=== PATIENT | male | born 1965 | race Caucasian/White ===

== ENCOUNTER 2024-06-13 13:39 | Day surgery (SDC) | payer BC, SELFPAY ==
[2024-06-13] VITALS (8 sets, daily range): BP systolic 137–165; BP diastolic 85–90; PULSE 69–107; RESP 16–18; TEMP 36.2–37.2; O2SAT 95–98; BMI 33.7
--- NOTE | 2024-06-13 13:58 | EDS_ITS ---
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 Patient states this happened Sunday and he went to [facility], was given IV medication and it helped. Patient states around noon today he was eating a pork chop when he felt that it was stuck. He states he tried drink water however would immediately throw it up. Denies any chest pain or shortness of breath. This has happened in the past however this was 15 years ago. He currently does not have a GI specialist. <Dr. Jean Pierre Hanks MD - Last Filed: 06/13/24 15:32> Narrative Narrative: Patient is a 59-year-old male with history of blood clots on [facility] who presents to the [facility] for foreign body stuck in his esophagus. Patient states this happened Sunday and he went to [facility], was given IV medication and it helped. Patient states around noon today he was eating a pork chop when he felt that it was stuck. He states he tried drink water however would immediately throw it up. Denies any chest pain or shortness of breath. This has happened in the past however this was 15 years ago. He currently does not have a GI specialist. I have personally performed a face to face assessment of the patient and have reviewed the BERNARDINO Note. I performed a substantive portion of the visit including all aspects of the following. My butt findings include: History is 59-year-old male and unfortunately for lung states it was stuck. It is similar Prasun on Sunday went to a local emergency department glucagon it resolved. He occasionally takes Nexium at home. Has not been taking it regularly. He does have a history of heartburn. Exam is [well-appearing 5-year-old male. Vital signs stable afebrile. Pulse ox 95% on room air. No distress. H EENT exam unremarkable. Posterior pharynx normal. Neck nontender. Lungs clear to auscultation. Heart regular rhythm no murmur rate about 70. Chest wall ribs nontender. Abdomen soft nontender. Moving all 4 extremities. Nontender no edema. He is awake and alert.] Medical Decision Making [patient with esophageal foreign body. He was given glucagon and Coke he threw up. But still unable to swallow. We spoke to GI Friend. He is seeing his patients in his office. Once he is done with that the patient be taken to endoscopy. Repeat exam patient is resting comfortably at 2:55 PM.] Other additions or changes: [None] Prior similar symptoms: Yes Recent Illness/Hospitalization: No PFSH <DHARMESH Borjas - Last Filed: 06/13/24 15:03> PENDING SALE TO [facility] Medical History no medical history Home Medications ?Medication ?Instructions ?Recorded ?Last Taken ?Type albuterol sulfate 90 mcg/actuation 2 puff inhalation Q4H PRN 06/13/24 Unknown History aerosol inhaler shortness of breath or wheezing apixaban 5 mg tablet (Eliquis) 5 mg PO BID 06/13/24 Unknown History hydrochlorothiazide 25 mg tablet 12.5 - 25 mg PO DAILY 06/13/24 06/13/24 History montelukast 10 mg tablet 10 mg PO QPM 06/13/24 06/12/24 History thyroid (pork) 15 mg tablet 15 mg PO DAILY 06/13/24 06/13/24 History (Bonnie Thyroid) Allergy/AdvReac Type Severity Reaction Status Date / Time No Known Allergies Allergy Verified 06/13/24 13:42 Family History no significant family his Surgical History no surgical history Social History Smoking Status: Never smoker ROS <DHARMESH Borjas - Last Filed: 06/13/24 15:03> ROS ED ROS Narrative Constitutional: Negative for fever, chills, weight loss, weakness Eyes: Negative for vision loss, vision change, double vision ENT: Negative for any sore throat, ear pain, congestion Cardiovascular: Negative for any chest pain, tightness, palpitations Respiratory: Negative for any cough, sputum production, hemoptysis, dyspnea, dyspnea on exertion, orthopnea Gastrointestinal: Negative for any abdominal pain, nausea, vomiting, diarrhea, constipation, blood in stool, blood in vomit. Positive for foreign body in esophagus : Negative for any urinary frequency, dysuria, retention, blood in urine Muscle skeletal: Negative for any neck pain, back pain Neurological: Negative for any headache, syncope, dizziness Skin: Negative for any rashes, itching, abrasions, lacerations Psychiatric: Negative for any depression, anxiety, stress, suicidal ideation, homicidal ideation Hematologic: Negative for any excessive bruising, easy bleeding EXAM <DHARMESH Borjas - Last Filed: 06/13/24 15:03> Physical Exam Narrative Exam Narrative: Vital signs reviewed. Patient appears to be in no distress however patient is constantly spitting up secondary to being unable to swallow. HEET: Head normocephalic atraumatic, TMs clear bilaterally. Posterior pharynx is clear, moist mucous membranes. Nares clear bilaterally. Neck: Supple with no lymphadenopathy or tenderness. No signs of meningismus. Cardiac: Regular rate and rhythm no murmurs gallops or rubs, equal peripheral pulses bilaterally. Respiratory: Lungs clear to auscultation bilaterally. No chest tenderness. Abdomen: Soft, nontender, nondistended. No abdominal bruit or pulsatile masses. No hepatosplenomegaly Extremities: No peripheral edema, no signs of gross trauma or deformity. Active full range of motion of all extremities. Neuro: Cranial nerves II through XII intact, no focal neurological deficits. Skin: Clean dry and intact with no rash, purpura, petechiae, vesicles or pustules. Backs/flank: No CVA tenderness, no midline spinal tenderness, no deformity. Psych: Normal mood and affect. No SI, HI or acute psychosis. Const Vital Signs: 06/13/24 13:40 06/13/24 13:56 Temperature 97.1 F L Temperature Source Temporal Pulse Rate 69 Respiratory Rate 18 Respiratory Effort Normal Non-Labored Respiratory Pattern Normal Blood Pressure 137/88 H Blood Pressure Mean 104 Pulse Ox 95 Oxygen Delivery Method Room Air <Dr. Jean Pierre Hanks MD - Last Filed: 06/13/24 15:32> Physical Exam Const Vital Signs: 06/13/24 13:40 06/13/24 13:56 Temperature 97.1 F L Temperature Source Temporal Pulse Rate 69 Respiratory Rate 18 Respiratory Effort Normal Non-Labored Respiratory Pattern Normal Blood Pressure 137/88 H Blood Pressure Mean 104 Pulse Ox 95 Oxygen Delivery Method Room Air MDM <DHARMESH Borjas - Last Filed: 06/13/24 15:03> [facility] Treatment and Re-Evaluation :: Differential diagnosis includes however is not limited to: Esophageal foreign body, esophageal stricture, sore throat, Patient appears generally well, vital signs are stable, patient is nontoxic- appearing. Patient presents to the [facility] for esophageal foreign body. Patient did have luck with the IV medication the first time, patient will have an IV established, IV glucagon, then 20 minutes, the patient will try a carbonated beverage while bouncing on the balls of his feet. I will reach out to Dr. Carr in case this is unsuccessful. The patient was unable to pass the foreign body on his own. We did reach out to Dr. Carr, he is in clinic right now however when he is done, he will take the patient to have the EGD to remove the foreign body. Patient remained stable. <Dr. Jean Pierre Hanks MD - Last Filed: 06/13/24 15:32> [facility] MDM Narrative Medical decision making narrative: I have personally performed a face to face assessment of the patient and have reviewed the BERNARDINO Note. I performed a substantive portion of the visit including all aspects of the following. My butt findings include: History is 59-year-old male esophageal foreign body he. Had a porch up today for lunch has not stuck. He is unable to swallow. Similar episode on Sunday where he went to another local emergency department was given glucagon it resolved. He has a history of reflux but only occasionally takes Nexium. Den ies other complaints. Exam is [well-appearing 5-year-old male. Vital signs stable afebrile. H EENT exam unremarkable. Neck nontender. Lungs clear. Heart regular rhythm. Abdomen soft nontender. No peritoneal signs. Moving all 4 extremities. Awake and alert. No focal motor deficits.] Medical Decision Making [patient with esophageal foreign body from food bolus. Given glucagon and Coke he threw those up. But still has a obstruction. Spoke to GI he will be taken for endoscopy.] Other additions or changes: [None] Discharge Plan Triage Chief Complaint: Foreign Body ED Midlevel Provider: Espinoza Vu ED Provider: Jean Pierre Hanks Dx/Rx/DC Orders Clinical Impression: Distal esophageal obstruction due to foreign body Prescriptions: No Action Eliquis 5 mg tablet 5 mg PO BID montelukast 10 mg tablet 10 mg PO QPM hydrochlorothiazide 25 mg tablet 12.5 - 25 mg PO DAILY albuterol sulfate 90 mcg/actuation HFA aerosol inhaler 2 puff INHALATION Q4H PRN (Reason: shortness of breath or wheezing) thyroid (pork) [[place]nie Thyroid] 15 mg tablet 15 mg PO DAILY Primary Care Provider: Care Physician,No Primary Referrals: Care Physician,No Primary [Primary Care Provider] - Print Language: Estonian Disposition Disposition: Home, Self Care
[2024-06-13] MEDS: Glucagon 1 MG/ML Syringe IV (14:04)
--- NOTE | 2024-06-13 16:20 | EGD_PTH ---
PATIENT: JEOVANY CHAND [place] [facility] [id number] AGE/SX: 59/M ROOM: RE06/13/[address]: Dr. Odilon Carr DO : 1965 BED: DIS: 06/13/2024 SPEC #: [id number] RECD: 06/16/24 10:36 STATUS: JORGE LUIS RENatty #: [id number] REMEDIOS: 06/13/24 16:[address]: Odilon Carr DEPT: SURGICAL PATHOLOGY RECD BY: Raine Prasad ENTERED: 06/16/24 12:25 SP TYPE: EGD BIOPSY OT DR: Dr. Jean Pierre Hanks MD No Primary Care Phys Tissues: Esophagus, NOS Procedures: Special Stain Group I Surgery Specimen Level IV AFB Stain (control) GMS Stain (control) HEADER OPERATION: EGD with foreign body extraction and biopsy PRE-OP DIAGNOSIS: Distal esophageal obstruction due to foreign body TISSUE SUBMITTED: Esophageal stricture biopsy MICROSCOPIC DIAGNOSIS Esophageal stricture, biopsy: Ulceration with associated acute and chronic inflammation and granulation. Changes consistent with reflux esophagitis. Negative for acid fast bacilli and fungal organisms. See comment. 06/17/2024 COMMENT Eosinophils numbers are greater than 20 in selected high power roach. AFB and GMS stains with matched controls were used in the evaluation of this case. MICROSCOPIC DESCRIPTION Slides are reviewed. GROSS DESCRIPTION Received in fixative is one container labeled with the patient's name and designated Esophageal stricture biopsy. The specimen consists of multiple irregular fragments of light hickman soft tissue that in aggregate measure 2.0 x 0.4 x 0.1 cm. The specimen is totally submitted in one cassette. 06/16/2024 TC:2 CPT:89305,11670m7
--- NOTE | 2024-06-13 16:27 | HP.PCM_ITS ---
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 Patient states this happened Sunday and he went to [facility], was given IV medication and it helped. Patient states around noon today he was eating a pork chop when he felt that it was stuck. He states he tried drink water however would immediately throw it up. Denies any chest pain or shortness of breath. This has happened in the p ast however this was 15 years ago. [facility] Medical History no medical history Home Medications ?Medication ?Instructions ?Recorded ?Last Taken ?Type albuterol sulfate 90 mcg/actuation 2 puff inhalation Q4H PRN 06/13/24 Unknown History aerosol inhaler shortness of breath or wheezing apixaban 5 mg tablet (Eliquis) 5 mg PO BID 06/13/24 06/13/24 History hydrochlorothiazide 25 mg tablet 12.5 - 25 mg PO DAILY 06/13/24 06/13/24 History montelukast 10 mg tablet 10 mg PO QPM 06/13/24 06/12/24 History thyroid (pork) 15 mg tablet 15 mg PO DAILY 06/13/24 06/13/24 History ([place] Thyroid) Allergy/AdvReac Type Severity Reaction Status Date / Time No Known Allergies Allergy Verified 06/13/24 13:42 Family History no significant family his Surgical History no surgical history Social History Smoking Status: Never smoker ROS Review of Systems ROS Unobtainable: other Constitutional Constitutional: Denies fatigue, fever(s), poor appetite, weight gain or weight loss ENT HEENT: Denies mouth lesions Cardiovascular Cardiovascular: Denies abdominal bloating, abdominal edema or abdominal pain Respiratory/Chest Respiratory/Chest: Denies change in mental status, change in phlegm color, chest congestion or chest tightness Gastrointestinal Gastrointestinal: Denies belching, bloating, change in bowel habits, change in stool character, chewing difficulty, coffee ground emesis, constipation, cramping, diarrhea, dyspepsia, dysphagia, early satiety, excessive flatus, fecal incontinence, heartburn, hematemesis, hematochezia, hemorrhoids, loose stools, melena, nausea, odynophagia, rectal bleeding, tenesmus, vomiting or weight changes Genitourinary Genitourinary: Denies abdominal discomfort, burning urination or itching Musculoskeletal Musculoskeletal: Reports as per HPI; Denies muscle weakness or myalgias Integumentary Integumentary: Denies jaundice Neurologic Neurologic: Denies lack of coordination or weakness Psychiatric Psychiatric: Denies confusion, depression, memory loss, mood swings, paranoia or suicidal ideation Endocrine Endocrinology: Denies systems reviewed and no addt'l complaints, except as documented Hematologic/Lymphatic Hematologic/Lymphatic: Denies anemia, easy bleeding, easy bruising or lymphadenopathy Allergic/Immunologic Allergic/Immunologic: Denies systems reviewed and no addt'l complaints, except as documented Vital Signs Vital Signs Vital Signs: 06/13/24 13:40 06/13/24 13:56 06/13/24 16:25 Temperature 97.1 F L 97.1 F L Temperature Source Temporal Pulse Rate 69 69 Respiratory Rate 18 18 Respiratory Effort Normal Non-Labored Respiratory Pattern Normal Blood Pressure 137/88 H 137/88 H Blood Pressure Mean 104 104 Pulse Ox 95 95 Oxygen Delivery Method Room Air Weight Weight: 263 lb Body Mass Index (BMI) 33.7 Physical Exam Const alert General Appearance: cooperative Orientation / Consciousness: oriented to person HEENT hearing grossly normal bilaterally Head and Scalp: normal to inspection Face and Sinus: face symmetric Nose: external nose normal Mouth: oral and palatal mucosa normal Eyes conjunctivae normal General Eye: normal appearance of both eyes Neck full ROM General: normal visual inspection Lymph Lymphatic: no lymphadenopathy noted Chest inspection of chest normal and palpation of chest normal Chest: symmetrical chest wall rise Resp normal respiratory effort Effort and Inspection: able to speak in complete sentences Cardio regular rate GI non-distended Percussion: normal to percussion Rectal Exam: deferred Neuro Speech: speech normal Gait (Neuro): normal gait Assessment & Plan Assessment/Plan (1) Distal esophageal obstruction due to foreign body: PLAN: He will undergo an upper endoscopy with foreign body removal. He was explained alternatives, risk, benefits include understanding bleeding, infection, sepsis, perforation, need emergent urgent . He will have an ASA of 3.
[2024-06-13] MEDS: 0.9% Normal Saline (1000mL) 1,000 ML 15 ML IV (16:32)
--- NOTE | 2024-06-13 17:07 | PCM.POST.ANE ---
Anesthesia: Postop Eval I Current Vital Signs Temperature: 98 F Pulse Rate: 107 Blood Pressure: 154/90 Respiratory Rate: 16 Pulse Ox: 97 Oxygen Delivery Method: Nasal Cannula Assessment Airway patent: Yes Spontaneous unlabored respirations: Yes Mental status: Awake and Calm nausea: No Vomiting: No Anesthesia Complication: No Fluid Hydration Crystalloid volume administer (ml): 500 Total IV fluid infused: 500 Progress Note Anesthesia document: Postop Eval 1 completed: Yes
--- NOTE | 2024-06-13 17:08 | POSTOPAN2_ITS ---
Anesthesia Postop Eval I Sum Postop Eval Completion status Anesthesia document: Postop Eval 1 completed: Yes Anesthesia Postop Eval I Summary Anesthesia Postop Eval I Summary: Anesthesia Postop Eval I: Assessment Summary Airway patent Yes 06/13/24 17:08 [email or web address] [email or web address] Spontaneous unlabored Yes 06/13/24 17:08 WRAPPER [email or web address] respirations Mental status Awake,Calm 06/13/24 17:08 WRAPPER [email or web address].[email or web address] nausea No 06/13/24 17:08 WRAPPER CASER.[email or web address] Vomiting No 06/13/24 17:08 WRAPPER CASER.[email or web address] Anesthesia Postop Eval I: Fluid Summary Crystalloid volume administer 500 06/13/24 17:08 WRAPPER CASER.MDOT (ml) Colloids volume administered ( ml) Blood Product volume administered (ml) Total IV fluid infused 500 06/13/24 17:08 WRAPPER CASER.[email or web address] Anesthesia Postop Eval I: Summary Notes Anesthesia Complication No 06/13/24 17:08 WRAPPER CASER.[email or web address] Anesthesia Complication Comment: Post-operative progress note Anesthesia: Postop Eval II Evaluation Mental status: Awake and Calm Pain Level: 0 nausea: No Vomiting: No Complications Anesthesia Complication: No
--- NOTE | 2024-06-13 17:08 | PCM.POSTANE2 ---
Anesthesia Postop Eval I Sum Postop Eval Completion status Anesthesia document: Postop Eval 1 completed: Yes Anesthesia Postop Eval I Summary Anesthesia Postop Eval I Summary: Anesthesia Postop Eval I: Assessment Summary Airway patent Yes 06/13/24 17:08 COMPARATIVE SOCIOLOGY PROFESSOR.[email or web address] Spontaneous unlabored Yes 06/13/24 17:08 COMPARATIVE SOCIOLOGY PROFESSOR.DENNISE respirations Mental status Awake,Calm 06/13/24 17:08 COMPARATIVE SOCIOLOGY PROFESSOR.DENNISE nausea No 06/13/24 17:08 COMPARATIVE SOCIOLOGY PROFESSOR.DENNISE Vomiting No 06/13/24 17:08 COMPARATIVE SOCIOLOGY PROFESSOR.DENNISE Anesthesia Postop Eval I: Fluid Summary Crystalloid volume administer 500 06/13/24 17:08 COMPARATIVE SOCIOLOGY PROFESSOR.MDOT (ml) Colloids volume administered ( ml) Blood Product volume administered (ml) Total IV fluid infused 500 06/13/24 17:08 COMPARATIVE SOCIOLOGY PROFESSOR.DENNISE Anesthesia Postop Eval I: Summary Notes Anesthesia Complication No 06/13/24 17:08 COMPARATIVE SOCIOLOGY PROFESSOR.DENNISE Anesthesia Complication Comment: Post-operative progress note Anesthesia: Postop Eval II Evaluation Mental status: Awake and Calm Pain Level: 0 nausea: No Vomiting: No Complications Anesthesia Complication: No
--- NOTE | 2024-06-13 17:08 | PCM.PRE.AN2 ---
ASA Classification* ASA Classification ASA Classification: 3 and E Assessment & Plan Anesthesia* Anesthesia Assessment Anesthesia Assessment: Discussed sedation and/or anesthesia options, risks, benefits, and alternatives with patient/parents/legal guardian/POA. Questions invited. The patient/parents/legal guardian/POA seems to understand and agrees to proceed with anesthesia plan. Reviewed the physical assessment, medical history, allergy history and patient home medications list prior to surgery/procedure/anesthetic and documented any changes. Performed airway and anesthesia risk assessments. Anesthesia Type Anesthesia Type: MAC History Source History Obtained from:: Patient and Chart Anesthesia Focused Assessment* Temperature: 98 F Pulse Rate: 107 Blood Pressure: 154/90 Respiratory Rate: 16 Pulse Ox: 97 Airway Assessment Mouth opens: >3 cm Mallampati Score: III Teeth Condition: Caps/Crowns (left top) Neck Range of motion (ROM): Limited ROM (thick neck) Focused Labs Anesthesia Preop lab: CBC CHEMISTRY COAG Pre-Assessment Diagnosis/Proposed Procedure Planned Operative Procedure(s): EGD, foreign body Anesthesia History Anesthesia History - adoption coordinator: Anesthesia History - adoption coordinator Hx Hospitalization Any Problems With Anesthesia Cholinesterase deficiency You/Your Family Experience fever (hyperthermia) with Relationship Recent Exposure to Contagious Disease Does patient have nerve stimulator Patient instructed to have device shut off --Does patient have Pacemaker or ICD? When Was Last Pacemaker Check QUESTION #4 FULL TEXT: You/Your Family Experience fever (hyperthermia) with Anesthesia Last Oral Intake Last Oral intake: Last Oral Intake NPO since Meds taken in AM with sips of water? Meds patient instructed to take am of surgery PONV PONV - adoption coordinator: PONV - adoption coordinator Female HX of Motion Sickness HX of N/V After Surgery Non-Smoker Duration of Surgery greater than 60 minutes Number of Risk Factors PONV Score Height & Weight Height & Weight: Anesthesia: Height & Weight Height 6 ft 2 in 06/13/24 13:40 Weight: 119.295 kg 06/13/24 13:40 Body Mass Index (BMI) 33.7 06/13/24 13:40 Respiratory Assessment Respiratory Assessment - adoption coordinator: Respiratory Tract Infection Hx - adoption coordinator Hx Respiratory Tract Infection STOP Sleep Apnea STOP Sleep Apnea - adoption coordinator: STOP Sleep Apnea - adoption coordinator Hx Hypertension Hx Sleep Apnea CPAP BIPAP Do you snore loudly (louder than talking or can be heard Do you often feel tired/ fatigued/ sleepy during daytime? Has anyone observed you stop breathing during sleep? STOP Results QUESTION #5 FULL TEXT : Do you snore loudly (louder than talking or can be heard through closed doors)? Tobacco Use History Tobacco Use History - adoption coordinator: Tobacco Use History - adoption coordinator Tobacco Use Smoking Status Never smoker 06/13/24 13:56 Hx Tobacco Use Years Smoking Packs Smoked per Day Smoking Cessation Date was within the last 15 years Hx Smoking Cessation Date Hx Smoking Cessation Counseling Hematologic Medial History Hematologic Hx - adoption coordinator: Hematologic Medical Hx - pharmacy operations coordinator Hx of Blood Transfusion Hx of Transfusion in last 3 Months Date of Last Transfusion (if within last 3 months) Ever experience any problems with transfusion(s)? Specify any problems Hx of Preganancy in last 3 Months Nurse Filling Out Transfusion & Questions: Date: Time: Patient unable to answer at this time (ie. confused, unrespo /Reproduction History /Reproductive History - adoption coordinator: /Reproductive Hx- adoption coordinator Hx Now Gestational Age (in weeks): EDC: Hx Hx Para Hx Section SAB Active Medications Active Medications: Current Medications Generic Name Dose Route Start Last Admin Trade Name Freq PRN Reason Stop Dose Admin Sodium Chloride 1,000 mls @ 15 mls/hr 06/13/24 16:30 06/13/24 16:32 IV 15 mls/hr .Q48H ABBEY Administration Pantoprazole Sodium 40 mg/ 110 mls @ 330 mls/hr 06/13/24 17:05 Sodium Chloride IV 06/13/24 17:24 X1 ONE PFSH Medical History no medical history Home Medications ?Medication ?Instructions ?Recorded ?Last Taken ?Type albuterol sulfate 90 mcg/actuation 2 puff inhalation Q4H PRN 06/13/24 Unknown History aerosol inhaler shortness of breath or wheezing apixaban 5 mg tablet (Eliquis) 5 mg PO BID 06/13/24 06/13/24 History hydrochlorothiazide 25 mg tablet 12.5 - 25 mg PO DAILY 06/13/24 06/13/24 History montelukast 10 mg tablet 10 mg PO QPM 06/13/24 06/12/24 History thyroid (pork) 15 mg tablet 15 mg PO DAILY 06/13/24 06/13/24 History ([place] Thyroid) Allergy/AdvReac Type Severity Reaction Status Date / Time No Known Allergies Allergy Verified 06/13/24 13:42 Family History no significant family his Surgical History no surgical history Social History Smoking Status: Never smoker Review of Systems (Anesthesia) ROS Narrative System reviewed and no additional complaints, except as documented.
--- NOTE | 2024-06-13 17:14 | OP.CCLET_ITS ---
06/13/2024 No Primary Care Physician Re : Upper GI endoscopy procedure [facility] This procedure was performed on Thursday, June 13, 2024. My impressions and recommendations are as follows: Impressions : - Food in the middle third of the esophagus. Removal was successful. - Esophageal mucosal changes consistent with eosinophilic esophagitis. 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 - Medium-sized hiatal hernia. - A medium amount of food (residue) in the stomach. - No gross lesions in the duodenal bulb. - Biopsies were taken with a cold forceps for evaluation of eosinophilic esophagitis. Recommendations : - Discharge patient to home. - Full liquid diet for 5 weeks. - Continue present medications. - Await pathology results. - Repeat upper endoscopy in 2 months for surveillance. - Return to GI office in 2 weeks. My findings are described in the full procedure note, which is enclosed. If I can be of further assistance, please feel free to contact me at . Sincerely, Odilon Carr, 06/13/2024 5:14:05 PM This report has been signed electronically.
--- NOTE | 2024-06-13 17:14 | OP.EGD_ITS ---
Patient Name: Dwight Mayfield Procedure Date: 06/13/2024 4:21 PM Date of : 1965 Age: 59 Procedure: Upper GI endoscopy Indications: Dysphagia Providers: Odilon Carr DO Referring MD: Remy Hanks MD Medicines: Monitored Anesthesia Care Patient Profile: This is a 59 year old male. Refer to note in patient chart for documentation of history and physical. Patient has symptoms of dysphagia with both liquids and solids. The symptoms first began 01,. Complications: No immediate complications. Procedure: Pre-Anesthesia Assessment: - Prior to the procedure, a History and Physical was performed, and patient medications and allergies were reviewed. The patient is competent. The risks and benefits of the procedure and the sedation options and risks were discussed with the patient. All questions were answered and informed consent was obtained. Patient identification and proposed procedure were verified by the physician in the pre-procedure area. Mental Status Examination: alert and oriented. Airway Examination: normal oropharyngeal airway and neck mobility. Respiratory Examination: clear to auscultation. CV Examination: normal. Prophylactic Antibiotics: The patient does not require prophylactic antibiotics. Prior Anticoagulants: The patient has taken no anticoagulant or antiplatelet agents except for NSAID medication. ASA Grade Assessment: II - A patient with mild systemic disease. After reviewing the risks and benefits, the patient was deemed in satisfactory condition to undergo the procedure. The anesthesia plan was to use monitored anesthesia care (MAC). Immediately prior to administration of medications, the patient was re-assessed for adequacy to receive sedatives. The heart rate, respiratory rate, oxygen saturations, blood pressure, adequacy of pulmonary ventilation, and response to care were monitored throughout the procedure. The physical status of the patient was re-assessed after the procedure. After obtaining informed consent, the endoscope was passed under direct vision. Throughout the procedure, the patient's blood pressure, pulse, and oxygen saturations were monitored continuously. The gastroscope was introduced through the mouth, and advanced to the second part of duodenum. The upper GI endoscopy was accomplished without difficulty. The patient tolerated the procedure well. Scope In: 4:45:11 PM Scope Out: 4:57:41 PM Total Procedure Duration Time 0 hours 12 minutes 30 seconds Findings: Food was found in the middle third of the esophagus. Removal was accomplished with a Maza net. Verification of patient identification for the specimen was done. Estimated blood loss was minimal. Mucosal changes including ringed esophagus, feline appearance, longitudinal furrows, small-caliber esophagus and white plaques were found in the upper third of the esophagus and in the middle third of the esophagus. Biopsies were obtained from the proximal and distal esophagus with cold forceps for histology of suspected eosinophilic esophagitis. Verification of patient identification for the specimen was done. Estimated blood loss was minimal. There were esophageal mucosal changes suggestive of long-segment Frey's esophagus present in the middle third of the esophagus and in the lower third of the esophagus. The maximum longitudinal extent of these mucosal changes was 6 cm in length. A medium-sized hiatal hernia was present. A medium amount of food (residue) was found in the gastric body. No gross lesions were noted in the duodenal bulb. Impression: - Food in the middle third of the esophagus. Removal was successful. - Esophageal mucosal changes consistent with eosinophilic esophagitis. 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 - Medium-sized hiatal hernia. - A medium amount of food (residue) in the stomach. - No gross lesions in the duodenal bulb. - Biopsies were taken with a cold forceps for evaluation of eosinophilic esophagitis. Recommendation: - Discharge patient to home. - Full liquid diet for 5 weeks. - Continue present medications. - Await pathology results. - Repeat upper endoscopy in 2 months for surveillance. - Return to GI office in 2 weeks. Procedure Code(s): --- Professional --- 79143, Esophagogastroduodenoscopy, flexible, transoral; with removal of foreign body(s) 17068, Esophagogastroduodenoscopy, flexible, transoral; with biopsy, single or multiple CPT copyright 2021 [employer]. All rights reserved. The codes documented in this report are preliminary and upon gambling dealer review may be revised to meet current compliance requirements. Odilon Carr DO 06/13/2024 5:14:05 PM This report has been signed electronically. Number of Addenda: 0 Note Initiated On: 06/13/2024 4:21 PM
[2024-06-13] MEDS: Pantoprazole Sodium 40 MG in 0.9% Normal Saline (100mL MB+) 100 ML 330 MG IV (17:47)
== END 2024-06-13 18:26 | disposition home or self-care (01) ==
LOC: ED 16:19 → SDC 16:19 → AC 16:20
PROVIDERS: Emergency Provider Emergency Medicine; Referring Provider Emergency Medicine; Visit Provider Internal Medicine Gastroenterology
PROC: 0DJ08ZZ Inspection of Upper Intestinal Tract, Via Natural or Artificial Opening Endoscopic (ICD-10-PCS; CPT 43235; principal; 2024-06-13 16:15)
DX: K22.2 Esophageal obstruction (principal); K44.9 Diaphragmatic hernia without obstruction or gangrene; Z79.01 Long term (current) use of anticoagulants; T18.128A Food in esophagus causing other injury, initial encounter; W44.F3XA Food entering into or through a natural orifice, initial encounter; Z79.899 Other long term (current) drug therapy; K22.10 Ulcer of esophagus without bleeding
CPT/HCPCS: 43247; 43239; 88305; 88312; 99284; J7030; A4216; J1610

== ENCOUNTER 2025-03-19 10:15 | Day surgery (SDC) | payer BC, SELFPAY ==
[2025-03-19] VITALS (8 sets, daily range): BP systolic 137–151; BP diastolic 85–95; PULSE 64–71; RESP 16–18; TEMP 36.1–36.4; O2SAT 96–99; BMI 35.1
--- NOTE | 2025-03-19 10:19 | EKG12_ITS ---
Test Reason : P Blood Pressure : */* mmHG Vent. Rate : 66 BPM Atrial Rate : 66 BPM P-R Int : 182 ms QRS Dur : 112 ms QT Int : 414 ms P-R-T Axes : 31 -48 -1 degrees QTcB Int : 434 ms Normal sinus rhythm Pulmonary disease pattern Left anterior fascicular block Minimal voltage criteria for LVH, may be normal variant ( R in aVL ) Abnormal ECG No previous ECGs available Confirmed by FRED JOSHI, JESSICA ([id number]), acquisitions editor CAROLYN GREEN ([id number]) on 03/26/2025 1:26:34 PM Referred By: Thanh Petersen Confirmed By: JESSICA IBARRA MD
--- NOTE | 2025-03-19 10:35 | PCM.HP.STD ---
HPI - General General Date of Admission: 03/19/25 Date of Service: 03/19/25 Chief Complaint: Eosinophilic esophagitis HPI Narrative JEOVANY CHAND, is a 60 M who presents to evaluate eosinophilic esophagitis. [facility] ED 06.13.24 foreign body lodged in esophagus EGD 06.13.24 Food in the middle third of the esophagus. Removal was successful. Esophageal mucosal changes consistent with eosinophilic esophagitis. 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 Medium-sized hiatal hernia. A medium amount of food (residue) in the stomach. No gross lesions in the duodenal bulb. Biopsies were taken with a cold forceps for evaluation of eosinophilic esophagitis. *[facility] established 06.24.24 pt reports that he is feeling well since ER visit, is currently eating on a soft food diet. Taking Omeprazole 40mg BID. OV 01.22.25 He remains on omeprazole 40mg PO twice daily. Denies recurrence of food impaction since starting PPI therapy. He denies all other GI complaints, only asking about repeat EGD to finish dilation of scar tissue seen during prior food impaction removal. [facility] Medical History Wears glasses Depression Alcohol use Difficulty swallowing Heartburn Sleep apnea Asthma Blood clot in abdominal vein Home Medications ?Medication ?Instructions ?Recorded ?Last Taken ?Type albuterol sulfate 90 mcg/actuation 2 puff inhalation Q4H PRN 06/13/24 Unknown History aerosol inhaler shortness of breath or wheezing apixaban 5 mg tablet (Eliquis) 5 mg PO BID 06/13/24 03/12/25 History omeprazole 40 mg capsule,delayed 40 mg PO BID #120 caps 06/24/24 03/18/25 Rx release montelukast 10 mg tablet 10 mg PO QPM 03/16/25 03/18/25 History semaglutide 0.25 mg or 0.5 mg (2 5 mg subcut QWEEK WEIGHT LOSS 03/16/25 Unknown History mg/3 mL) subcutaneous pen injector (Ozempic) Allergy/AdvReac Type Severity Reaction Status Date / Time No Known Allergies Allergy Verified 03/19/25 10:30 Surgical History Hx of appendectomy Hx of colonoscopy Social History Smoking Status: Never smoker alcohol intake: current alcohol intake frequency: a few times a week Alcohol type: beer substance use type: does not use ROS Constitutional Constitutional: Denies fatigue, fever(s), poor appetite, weight gain or weight loss Gastrointestinal Gastrointestinal: Denies belching, bloating, change in bowel habits, change in stool character, chewing difficulty, coffee ground emesis, constipation, cramping, diarrhea, dyspepsia, dysphagia, early satiety, excessive flatus, fecal incontinence, heartburn, hematemesis, hematochezia, hemorrhoids, loose stools, melena, nausea, odynophagia, rectal bleeding, tenesmus, vomiting or weight changes Physical Exam Const alert, oriented x3, no apparent distress and healthy appearing General Appearance: cooperative GI normal to inspection, nondistended, normoactive bowel sounds, soft to palpation, non-tender and non-distended Percussion: normal to percussion Rectal Exam: deferred Assessment & Plan Assessment/Plan (1) Eosinophilic esophagitis: (2) Distal esophageal obstruction due to foreign body: PLAN: Assessment and Plan Assessment and Plan (1) Eosinophilic esophagitis: Status: Acute (2) Distal esophageal obstruction due to foreign body: Status: Acute Plan JEOVANY CHAND, is a 59 M who presents to the office today for FU with distal esophagus food impaction and EoE. Reviewed risks and benefits of PPI therapy and repeating endoscopic procedure w/dilation. schedule EGD w/dilation continue PPI twice daily office FU for results
[2025-03-19] MEDS: Lactated Ringers 1,000 ML 15 ML IV (10:41)
--- NOTE | 2025-03-19 11:00 | PRE.ANES_ITS ---
ASA Classification* ASA Classification ASA Classification: 2 Assessment & Plan Anesthesia* Anesthesia Assessment Anesthesia Assessment: Discussed sedation and/or anesthesia options, risks, benefits, and alternatives with patient/parents/legal guardian/POA. Questions invited. The patient/parents/legal guardian/POA seems to understand and agrees to proceed with anesthesia plan. Reviewed the physical assessment, medical history, allergy history and patient home medications list prior to surgery/procedure/anesthetic and documented any changes. Performed airway and anesthesia risk assessments. Anesthesia Type Anesthesia Type: MAC History Source History Obtained from:: Patient and Chart Anesthesia Focused Assessment* Temperature: 97.6 F Pulse Rate: 65 Blood Pressure: 151/95 Respiratory Rate: 17 Pulse Ox: 96 Oxygen Delivery Method: Room Air Airway Assessment Mouth opens: >3 cm Mallampati Score: II Teeth Condition: Caps/Crowns (Patient has a crown. It is tight.) Neck Range of motion (ROM): Limited ROM (Slight decrease in extension) Labs Anesthesia Preop lab: CBC CHEMISTRY COAG Pre-Assessment Diagnosis/Proposed Procedure Planned Operative Procedure(s): Esophagoduodenoscopy with possible biopsy and possible dilation Anesthesia History Anesthesia History - material disposition inspector: Anesthesia History - material disposition inspector Hx Hospitalization No 03/16/25 14:37 Any Problems With Anesthesia No 03/16/25 14:37 Cholinesterase deficiency No 03/16/25 14:37 You/Your Family Experience No 03/16/25 14:37 fever (hyperthermia) with Relationship Recent Exposure to Contagious No 03/19/25 10:31 Disease Does patient have nerve No 03/16/25 14:37 stimulator Patient instructed to have device shut off --Does patient have Pacemaker No 03/19/25 10:31 or ICD? When Was Last Pacemaker Check QUESTION #4 FULL TEXT: You/Your Family Experience fever (hyperthermia) with Anesthesia Last Oral Intake Last Oral intake: Last Oral Intake NPO since 00:00 03/19/25 10:31 Meds taken in AM with sips of No 03/19/25 10:31 water? Meds patient instructed to take am of surgery PONV PONV - material disposition inspector: PONV - material disposition inspector Female No 03/16/25 14:37 HX of Motion Sickness No 03/16/25 14:37 HX of N/V After Surgery No 03/16/25 14:37 Non-Smoker Yes 03/16/25 14:37 Duration of Surgery greater No 03/16/25 14:37 than 60 minutes Number of Risk Factors 1 03/16/25 14:37 PONV Score Low Risk 03/16/25 14:37 Height & Weight Height & Weight: Anesthesia: Height & Weight Height 6 ft 2 in 03/19/25 10:31 Weight: 124 kg 03/19/25 10:31 Body Mass Index (BMI) 35.1 03/19/25 10:31 Respiratory Assessment Respiratory Assessment - material disposition inspector: Respiratory Tract Infection Hx - material disposition inspector Hx Respiratory Tract Infection No 03/16/25 14:37 STOP Sleep Apnea STOP Sleep Apnea - material disposition inspector: STOP Sleep Apnea - material disposition inspector Hx Hypertension No 03/16/25 14:37 Hx Sleep Apnea No 03/16/25 14:37 CPAP BIPAP Do you snore loudly (louder Yes 03/16/25 14:37 than talking or can be heard Do you often feel tired/ No 03/16/25 14:37 fatigued/ sleepy during daytime? Has anyone observed you stop No 03/16/25 14:37 breathing during sleep? STOP Results Negative 03/16/25 14:37 QUESTION #5 FULL TEXT : Do you snore loudly (louder than talking or can be heard through closed doors)? Tobacco Use History Tobacco Use History - material disposition inspector: Tobacco Use History - material disposition inspector Tobacco Use Smoking Status Never smoker 03/16/25 14:37 Hx Tobacco Use No 03/16/25 14:37 Years Smoking Packs Smoked per Day Smoking Cessation Date was within the last 15 years Hx Smoking Cessation Date Hx Smoking Cessation Counseling Hematologic Medial History Hematologic Hx - material disposition inspector: Hematologic Medical Hx - construction carpenter Hx of Blood Transfusion No 03/16/25 14:37 Hx of Transfusion in last 3 No 03/16/25 14:37 Months Date of Last Transfusion (if within last 3 months) Ever experience any problems No 03/16/25 14:37 with transfusion(s)? Specify any problems Hx of Preganancy in last 3 N/A 03/16/25 14:37 Months Nurse Filling Out Transfusion JZOLLINGE 03/16/25 14:37 & Questions: Date: 03/16/25 03/16/25 14:37 Time: 14:42 03/16/25 14:37 Patient unable to answer at this time (ie. confused, unrespo /Reproduction History /Reproductive History - material disposition inspector: /Reproductive Hx- material disposition inspector Hx Now No 03/16/25 14:37 Gestational Age (in weeks): EDC: Hx Hx Para Hx Section SAB No 03/16/25 14:37 Active Medications Active Medications: Current Medications Generic Name Dose Route Start Last Admin Trade Name Freq PRN Reason Stop Dose Admin Lactated Ringer's 1,000 mls @ 15 mls/hr 03/19/25 10:30 03/19/25 10:41 IV 15 mls/hr .Q48H ABBEY Administration PFSH Medical History Wears glasses Depression Alcohol use Difficulty swallowing Heartburn Sleep apnea Asthma Blood clot in abdominal vein Home Medications ?Medication ?Instructions ?Recorded ?Last Taken ?Type albuterol sulfate 90 mcg/actuation 2 puff inhalation Q 4H PRN 06/13/24 Unknown History aerosol inhaler shortness of breath or wheez ing apixaban 5 mg tablet (Eliquis) 5 mg PO BID 06/13/24 History omeprazole 40 mg capsule,delayed 40 mg PO BID #120 cap s 06/24/24 03/18/25 Rx release montelukast 10 mg tablet 10 mg PO QPM 03/16/25 History semaglutide 0.25 mg or 0.5 mg (2 5 mg subcut QWEEK ROBERTO GHT LOSS 03/16/25 Unknown History mg/3 mL) subcutaneous pen injector (Ozempic) Allergy/AdvReac Type Severity Reaction Status Date / Time No Known Allergies Allergy Verified 03/19/25 10:30 Surgical History Hx of appendectomy Hx of colonoscopy Social History Smoking Status: Never smoker alcohol intake: current alcohol intake frequency: a few times a week Alcohol type: beer substance use type: does not use Review of Systems (Anesthesia) ROS Narrative System reviewed and no additional complaints, except as documented. Physical Exam Resp clear to auscultation bilaterally
--- NOTE | 2025-03-19 11:30 | EGD_PTH ---
PATIENT: JEOVANY CHAND LOC: EN U#:[id number] AGE/SX: 60/M ROOM: RE03/19/[address]: Dr. Odilon Carr DO : 1965 BED: DIS: 03/19/2025 SPEC #: [id number] RECD: 03/19/25 13:16 STATUS: JORGE LUIS HERNANDO #: [id number] REMEDIOS: 03/19/25 11:[address]: Odilon Carr DEPT: SURGICAL PATHOLOGY RECD BY: Lex Erwin ENTERED: 03/19/25 13:52 SP TYPE: EGD BIOPSY ZEHRA DR: Dr. Thanh Petersen MD Tissues: A - Esophagus, NOS Procedures: Surgery Specimen Level IV HEADER OPERATION: EGD with biopsy PRE-OP DIAGNOSIS: Eosinophilic esophagitis TISSUE SUBMITTED: A- Distal esophagus biopsy MICROSCOPIC DIAGNOSIS A. Distal esophagus, biopsy: - Columnar mucosa with goblet cell metaplasia - see note. - Scant squamous mucosa negative for eosinophils. - Negative for dysplasia. Note: The diagnosis depends on the location of the biopsy and the extent of the mucosal irregularity. If the biopsy originates from the tubular esophagus and the mucosal irregularity extends at least 1 cm above the top of the gastric folds, this represents Frey mucosa. If the biopsy originates from the gastric cardia and/or the mucosal irregularity is less than 1 cm in extent, this represents intestinal metaplasia. MICROSCOPIC DESCRIPTION Slides are reviewed. GROSS DESCRIPTION A. Received in fixative is one container labeled with the patient's name and designated Distal esophagus biopsy. The specimen consists of multiple irregular fragments of light hickman soft tissue that in aggregate measure 0.2 to 0.3 cm. The specimen is totally submitted in one cassette. [place] 03/19/2025 CPT:95323 ADDENDUM ADDENDUM ADDENDUM ADDENDUM ADDENDUM ADDENDUM ADDENDUM ADDENDUM ADDENDUM ADDENDUM ADDENDUM ADDENDUM ADDENDUM 05/20/2025 10:09 ADDENDUM 05/20/2025 10:09 ADDENDUM 05/20/2025 10:09 ADDENDUM 05/20/2025 10:09 ADDENDUM 05/20/2025 10:09 This addendum is added to incorporate an outside pathology consultation report. [employer] - [employer] / Frey's esophagus risk class and risk score report: RISK CLASS: HIGH RISK SCORE: 6.4 5-year probability of progression: 12% Please see complete above mentioned consultation report in EMR
--- NOTE | 2025-03-19 12:29 | OP.EGD_ITS ---
Patient Name: Dwight Mayfield Procedure Date: 03/19/2025 12:06 PM Date of : 1965 Age: 60 Procedure: Upper GI endoscopy Indications: Follow-up of Frey's esophagus Providers: Odilon Carr DO Referring MD: Thanh Petersen Medicines: Monitored Anesthesia Care Patient Profile: This is a 60 year old male. Refer to note in patient chart for documentation of history and physical. Patient has symptoms of chronic heartburn. Complications: No immediate complications. Procedure: Pre-Anesthesia Assessment: - Prior to the procedure, a History and Physical was performed, and patient medications and allergies were reviewed. The patient is competent. The risks and benefits of the procedure and the sedation options and risks were discussed with the patient. All questions were answered and informed consent was obtained. Patient identification and proposed procedure were verified by the physician in the pre-procedure area. Mental Status Examination: alert and oriented. Airway Examination: normal oropharyngeal airway and neck mobility. Respiratory Examination: clear to auscultation. CV Examination: normal. Prophylactic Antibiotics: The patient does not require prophylactic antibiotics. Prior Anticoagulants: The patient has taken no anticoagulant or antiplatelet agents. ASA Grade Assessment: II - A patient with mild systemic disease. After reviewing the risks and benefits, the patient was deemed in satisfactory condition to undergo the procedure. The anesthesia plan was to use monitored anesthesia care (MAC). Immediately prior to administration of medications, the patient was re-assessed for adequacy to receive sedatives. The heart rate, respiratory rate, oxygen saturations, blood pressure, adequacy of pulmonary ventilation, and response to care were monitored throughout the procedure. The physical status of the patient was re-assessed after the procedure. After obtaining informed consent, the endoscope was passed under direct vision. Throughout the procedure, the patient's blood pressure, pulse, and oxygen saturations were monitored continuously. The gastroscope was introduced through the mouth, and advanced to the second part of duodenum. The upper GI endoscopy was accomplished without difficulty. The patient tolerated the procedure well. Scope In: 12:17:59 PM Scope Out: 12:21:25 PM Total Procedure Duration Time 0 hours 3 minutes 26 seconds Findings: There were esophageal mucosal changes secondary to established long-segment Frey's disease present in the lower third of the esophagus. The maximum longitudinal extent of these mucosal changes was 9 cm in length. Mucosa was biopsied with a cold forceps for histology in a targeted manner at intervals of 1 cm in the lower third of the esophagus and at the gastroesophageal junction. One specimen bottle was sent to pathology. Verification of patient identification for the specimen was done. Estimated blood loss was minimal. A medium-sized hiatal hernia was present. No other significant abnormalities were identified in a careful examination of the stomach. The examined duodenum was normal. Impression: - Esophageal mucosal changes secondary to established long-segment Frey's disease. Biopsied. - Medium-sized hiatal hernia. - Normal examined duodenum. Recommendation: - Discharge patient to home. - Resume previous diet. - Continue present medications. - Await pathology results. - Repeat upper endoscopy in 1 year. Procedure Code(s): --- Professional --- 76730, Esophagogastroduodenoscopy, flexible, transoral; with biopsy, single or multiple CPT copyright 2021 [employer]. All rights reserved. The codes documented in this report are preliminary and upon hand buffing wheel former review may be revised to meet current compliance requirements. Odilon Carr DO 03/19/2025 12:28:59 PM This report has been signed electronically. Number of Addenda: 0 Note Initiated On: 03/19/2025 12:06 PM
--- NOTE | 2025-03-19 12:29 | OP.CCLET_ITS ---
03/19/2025 Thanh Petersen Re : Upper GI endoscopy procedure for Dwight Mayfield [facility] This procedure was performed on February. My impressions and recommendations are as follows: Impressions : - Esophageal mucosal changes secondary to established long-segment Frey's disease. Biopsied. - Medium-sized hiatal hernia. - Normal examined duodenum. Recommendations : - Discharge patient to home. - Resume previous diet. - Continue present medications. - Await pathology results. - Repeat upper endoscopy in 1 year. My findings are described in the full procedure note, which is enclosed. If I can be of further assistance, please feel free to contact me at . Sincerely, Odilon Carr, 03/19/2025 12:28:59 PM This report has been signed electronically.
--- NOTE | 2025-03-19 12:29 | PCM.POST.ANE ---
Anesthesia: Postop Eval I Current Vital Signs Temperature: 97 F Pulse Rate: 71 Blood Pressure: 142/85 Respiratory Rate: 16 Pulse Ox: 99 Assessment Airway patent: Yes Spontaneous unlabored respirations: Yes nausea: No Vomiting: No Anesthesia Complication: No Fluid Hydration Crystalloid volume administer (ml): 300 Total IV fluid infused: 300 Progress Note Anesthesia document: Postop Eval 1 completed: Yes
--- NOTE | 2025-03-19 18:13 | POSTOPAN2_ITS ---
Anesthesia Postop Eval I Sum Postop Eval Completion status Anesthesia document: Postop Eval 1 completed: Yes Anesthesia Postop Eval I Summary Anesthesia Postop Eval I Summary: Anesthesia Postop Eval I: Assessment Summary Airway patent Yes 03/19/25 12:29 [email or web address] Spontaneous unlabored Yes 03/19/25 12:29 BUSINESS [email or web address] respirations Mental status nausea No 03/19/25 12:29 BUSINESS [email or web address] Vomiting No 03/19/25 12:29 [email or web address] Anesthesia Postop Eval I: Fluid Summary Crystalloid volume administer 300 03/19/25 12:29 [email or web address] (ml) Colloids volume administered ( ml) Blood Product volume administered (ml) Total IV fluid infused 300 03/19/25 12:29 BUSINESS [email or web address] Anesthesia Postop Eval I: Summary Notes Anesthesia Complication No 03/19/25 12:29 [email or web address] Anesthesia Complication Comment: Post-operative progress note Anesthesia: Postop Eval II Evaluation Mental status: Awake Pain Level: 0 nausea: No Vomiting: No
--- NOTE | 2025-03-19 18:13 | PCM.POSTANE2 ---
Anesthesia Postop Eval I Sum Postop Eval Completion status Anesthesia document: Postop Eval 1 completed: Yes Anesthesia Postop Eval I Summary Anesthesia Postop Eval I Summary: Anesthesia Postop Eval I: Assessment Summary Airway patent Yes 03/19/25 12:29 [email or web address] Spontaneous unlabored Yes 03/19/25 12:29 [email or web address] respirations Mental status nausea No 03/19/25 12:29 [email or web address] Vomiting No 03/19/25 12:29 [email or web address] Anesthesia Postop Eval I: Fluid Summary Crystalloid volume administer 300 03/19/25 12:29 [email or web address] (ml) Colloids volume administered ( ml) Blood Product volume administered (ml) Total IV fluid infused 300 03/19/25 12:29 [email or web address] Anesthesia Postop Eval I: Summary Notes Anesthesia Complication No 03/19/25 12:29 [email or web address] Anesthesia Complication Comment: Post-operative progress note Anesthesia: Postop Eval II Evaluation Mental status: Awake Pain Level: 0 nausea: No Vomiting: No
== END 2025-03-19 13:20 | disposition home or self-care (01) ==
LOC: EN 10:16 → AC 10:18
PROVIDERS: PCP Family Medicine; Referring Provider Family Medicine; Visit Provider Internal Medicine Gastroenterology
PROC: 0DJ08ZZ Inspection of Upper Intestinal Tract, Via Natural or Artificial Opening Endoscopic (ICD-10-PCS; CPT 43235; principal; 2025-03-19 11:25)
DX: K22.70 Barrett's esophagus without dysplasia (principal); K20.0 Eosinophilic esophagitis; Z79.85 Long-term (current) use of injectable non-insulin antidiabetic drugs; J45.909 Unspecified asthma, uncomplicated; K44.9 Diaphragmatic hernia without obstruction or gangrene; Z79.899 Other long term (current) drug therapy
CPT/HCPCS: 43239; 88305; 93005